=== PATIENT | female | born 1955 | race Caucasian/White ===

== ENCOUNTER 2022-07-31 12:21 | Outpatient (REF) | payer SELFPAY | END 2022-07-31 12:22 | disposition home or self-care (01) | LOC: HO.HAP 12:21 | PROVIDERS: Visit Provider Student in an Organized Health Care Education/Training Program | DX: Z13.89 Encounter for screening for other disorder (principal) ==

== ENCOUNTER 2022-11-24 12:25 | Outpatient (REF) | payer SELFPAY | END 2022-11-24 12:26 | disposition home or self-care (01) | LOC: HO.HAP 12:25 | PROVIDERS: Visit Provider Student in an Organized Health Care Education/Training Program | DX: Z13.89 Encounter for screening for other disorder (principal) ==

== ENCOUNTER 2023-02-09 12:45 | Outpatient (REF) | payer SELFPAY ==
--- NOTE | 2023-02-09 14:36 | MHC.AU.HA3 ---
Hearing Instrument Follow-Up- Binaural Date of Visit: 02/09/23 Right Ear: Make, Model, Color, Serial Number: ReSound Erasmo Q7 HP BTE ([id number] - DWHT) Color: 74 [id number] NOW PROGRAMMED FOR THE LEFT EAR BACKUP Systems Auditor Repair Warranty: 07/13/2025 Systems Auditor Loss and Damage Warranty: 07/13/2025 [facility] Service Plan: 07/17/2023 Battery Size: 13 Earmold/Dome/CShell/SlimTip:Microsonic M45 canal lock Dispensed By: [facility] Date of Fittin07/17/2022 Left Ear: Make, Model, Color, Serial Number: ReSound Erasmo Q7 HP BTE ([id number] - DWHT) Color: 74 (DK BR) [id number] Systems Auditor Repair Warranty: 07/13/2025 Systems Auditor Loss and Damage Warranty: 07/13/2025 [facility] Service Plan: 07/17/2023 Battery Size: 13 Earmold/Dome/CShell/SlimTip: Microsonic M45 canal lock Dispensed By: [facility] Date of Fittin07/17/2022 Follow-Up Summary: Fit new earmold. Comfortable and no feedback in office. Advised of 90-day remake warranty. Sakshi will call if issues with fit or comfort arise. Sakshi has right CI now. She is unsure if her hearing aid and CI were programmed together at [facility] - she will call to inquire. Advised having all programming/adjustments and testing at [facility] for both CI and hearing aid together as [facility] does not work with CIs. Sakshi reported, however, that she would still prefer to come here for testing of her left ear and hearing aid related issues. She is currently scheduled for an updated hearing evaluation on 07/09/2023. Recommendations: Hearing instrument maintenance in 6 months, or sooner if needed. Please contact our clinic with any questions or concerns. Diagnosis Code(s): Primary Diagnosis: H90.3 Bilateral Sensorineural Hearing Loss Signature: Provider: Ruddy Valiente, [facility]
== END 2023-02-09 12:46 | disposition home or self-care (01) ==
LOC: HO.HAP 12:45
PROVIDERS: Visit Provider Student in an Organized Health Care Education/Training Program
DX: H90.3 Sensorineural hearing loss, bilateral (principal)
CPT/HCPCS: V5264

== ENCOUNTER 2023-07-09 13:00 | Outpatient (REF) | payer SELFPAY ==
--- NOTE | 2023-07-09 15:28 | MHC.AU.HA3 ---
Hearing Instrument Follow-Up- Binaural Date of Visit: 07/09/23 BACK UP Left Ear: Make, Model, Color, Serial Number: Zohaib Plummero Q7 HP BTE ([id number] - DWHT) Color: 74 [id number] NOW PROGRAMMED FOR THE LEFT EAR BACKUP Durability Technician Repair Warranty: 07/13/2025 Durability Technician Loss and Damage Warranty: 07/13/2025 [facility] Service Plan: 07/17/2023 Battery Size: 13 Erp Consultant/Slim Tube: NA Earmold/Dome/CShell/SlimTip:Microsonic M45 canal lock Type of Wax Guard: Dispensed By: [facility] Date of Fittin07/17/2022 Left Ear: Make, Model, Color, Serial Number: Zohaib Plummero Q7 HP BTE (EQ788 - DWHT) Color: 74 (DK BR) [id number] Durability Technician Repair Warranty: 07/13/2025 Durability Technician Loss and Damage Warranty: 07/13/2025 [facility] Service Plan: 07/17/2023 Battery Size: 13 Erp Consultant/Slim Tube: NA Earmold/Dome/CShell/SlimTip: Microsonic M45 canal lock Type of Wax Guard: Dispensed By: [facility] Date of Fittin07/17/2022 Follow-Up Summary: Here for tube change. Reports that neither hearing aid (uses one as a back up, switches left mold and tube between aids) is working recently. Found tube to be very hard, listening check positive for both aids after cleaning and with fresh tube. Pt also notes recent ear infection As with TM rupture with discharge, went to urgent care, notes she is currently taking antibiotics and trying to schedule an appt. with her ENT. Otoscopy reveals dry blood and debris in canal, could not fully visualize TM. Advised not to wear the hearing aid on the left ear until the infection is fully cleared up. Recommendations: Recommendations: Hearing instrument maintenance in 6 months, or sooner if needed. Diagnosis Code(s): Primary Diagnosis: H90.3 Bilateral Sensorineural Hearing Loss Signature: Provider: Ruddy Schmidt, [facility]
== END 2023-07-09 13:01 | disposition home or self-care (01) ==
LOC: HO.HAP 13:00
PROVIDERS: Visit Provider Student in an Organized Health Care Education/Training Program
DX: Z13.89 Encounter for screening for other disorder (principal)

== ENCOUNTER 2023-12-08 13:52 | Outpatient (REF) | payer SELFPAY | END 2023-12-08 13:53 | disposition home or self-care (01) | LOC: HO.HAP 13:52 | PROVIDERS: Visit Provider Student in an Organized Health Care Education/Training Program | DX: Z46.1 Encounter for fitting and adjustment of hearing aid (principal); H90.3 Sensorineural hearing loss, bilateral | CPT/HCPCS: 92593 ==

== ENCOUNTER 2024-03-31 13:14 | Outpatient (REF) | payer SELFPAY | END 2024-03-31 13:15 | disposition home or self-care (01) | LOC: HO.HAP 13:14 | PROVIDERS: Visit Provider Student in an Organized Health Care Education/Training Program | DX: Z13.89 Encounter for screening for other disorder (principal) ==

== ENCOUNTER 2024-04-28 08:13 | Outpatient (REF) | payer SELFPAY ==
--- NOTE | 2024-04-28 12:15 | MHC.AU.HA3 ---
Hearing Instrument Follow-Up- Binaural Date of Visit: 04/28/24 Right Ear: Make, Model, Color, Serial Number: ReSound Erasmo Q7 HP BTE (EQ788 - DWHT) Color: 74 [id number] NOW PROGRAMMED FOR THE LEFT EAR BACKUP; HAS CI Cuffer Repair Warranty: 07/13/2025 Cuffer Loss and Damage Warranty: 07/13/2025 [facility] Service Plan: 07/17/2023 Battery Size: 13 Specialties Operator/Slim Tube: NA Earmold/Dome/CShell/SlimTip:Microsonic M45 canal lock Type of Wax Guard: Dispensed By: [facility] Date of Fittin07/17/2022 Left Ear: Make, Model, Color, Serial Number: ReSound Erasmo Q7 HP BTE (EQ788 - DWHT) Color: 74 (DK BR) [id number] Cuffer Repair Warranty: 07/13/2025 Cuffer Loss and Damage Warranty: 07/13/2025 [facility] Service Plan: 07/17/2023 Battery Size: 13 Specialties Operator/Slim Tube: NA Earmold/Dome/CShell/SlimTip: Microsonic M45 canal lock Type of Wax Guard: Dispensed By: [facility] Date of Fittin07/17/2022 Follow-Up Summary: Dispensed new left EM. Cleaned and checked aid, listening check positive. Good subjective comfort and benefit reported. Disposed of old EM at Sakshi's request, she notes is has been uncomfortable and does not wish to hold on to is as a back up. Recommendations: Recommendations: Hearing instrument maintenance in 6 months, or sooner if needed. Diagnosis Code(s): Primary Diagnosis: H90.3 Bilateral Sensorineural Hearing Loss Signature: Provider: Ruddy Magana, [facility]
== END 2024-04-28 08:14 | disposition home or self-care (01) ==
LOC: HO.HAP 08:13
PROVIDERS: Visit Provider Student in an Organized Health Care Education/Training Program
DX: Z46.1 Encounter for fitting and adjustment of hearing aid (principal); H90.3 Sensorineural hearing loss, bilateral
CPT/HCPCS: V5264

== ENCOUNTER 2024-09-18 15:36 | Outpatient (AMB) | payer MEDICARE, SELFPAY ==
[2024-09-18 15:39] VITALS: BP 106/72; PULSE 73; O2SAT 96; BMI 27.1
--- NOTE | 2024-09-18 15:39 | A.OFFPC_ITS ---
Vital Signs 09/18/24 15:39 Height 5 ft 4 in Weight 158 lb BMI 27.1 BP 106/72 Blood Pressure Location Rt brachial Position Sitting Pulse 73 Pulse Source Pulse Oximeter Pulse Oximetry (%) 96 Oxygen Delivery Method Room Air Intake Visit Reasons: Est care Allergies codeine Allergy (Intermediate, Verified 09/18/24 15:45) Unknown Tobacco use date assessed: 09/18/24 Fall risk assessment: No Falls in past year Last assessed Fall Risk: 09/18/24 Dental Screening Dental Screen Date: 09/18/24 Did you have a dental visit in the last 12 months?: Yes Did you have a dental problem in the last 6 months where you did not have access to dental care?: No Was dental information given to patient?: Patient has dentist HPI HPI Comments History of Present Illness Details 69 year old female with SNH presents to [facility]. Transfer from [facility]. Requests referral to counseling for self care and to discuss events in her life that have been stressful over the years. Denies depression and JACQUELINE symptoms. PHQ9 negative. SNHL-symptoms since 47 years old. S/p right cochlear implant. She uses a hearing aid on the left. She sees Dr. Greene. Endorses headaches x 1-2 years. Occur monthly, but she had 2 the past month that were more severe. Generalized aching headache. Rated as severe when present like she was hit in the head. Associated with light sensitivity. Previously took ibuprofen 400 mg 1x to treat. Required 2-3 doses the last 2 headaches. No jaw clenching/teeth grinding, neck pain. Denies neuroimaging for evaluation. Last colonoscopy 2006. Denies colonoscopy. Cologuard ordered. ROS: Constitutional: No unexplained weight loss, fever, chills, fatigue or night sweats. Eyes: No vision changes, blurry vision, double vision, eye pain, eye redness, eye discharge. ENT: No hearing loss, sneezing, congestion, runny nose or sore throat. Respiratory: No shortness of breath, cough or sputum production. Cardiovascular: No chest pain, chest pressure or chest discomfort. No palpitations or pedal edema. Gastrointestinal: No anorexia, nausea, vomiting or diarrhea. No abdominal pain or blood in stool. Neurologic: No tremors, seizures, dizziness, syncope, unilateral weakness, ataxia, numbness or tingling in the extremities. Musculoskeletal: No neck pain Psychiatric: No depression or anxiety. No SI/HI. Physical exam: Constitutional: Alert, in no distress. Head: Normocephalic. Eyes: Pupils are equal, round and reactive to light. Extraocular muscles intact. Neck: Supple, Full range of motion. No lymphadenopathy. No palpable thyroid masses. Respiratory: Clear to auscultation. Cardiovascular: S1 S2 regular. No murmurs. Gastrointestinal: Abdomen soft, non-tender, non-distended. Normal bowel sounds. No palpable masses. Neurologic:?Alert and oriented x 3, no focal deficits observed, CN 2-12 intact, boavpx-fknv-[id number] normal, sensation equal and symmetric, strength UE and LE 5/5 bilaterally, reflexes equal and symmetric.? Normal gait.? Patient able to heel walk, toe walk and walk heel-to-toe across the floor.? No pronator drift.? Negative Romberg. Cervical spine: No gross deformities. Normal range of motion. Nontender. Extremities: Warm and well perfused. No clubbing, cyanosis or edema. [facility] Medical History (Updated 09/18/24 @ 20:19 by SAM Browning) Stress Worsening headaches Cochlear implant in place Surgical History (Updated 09/18/24 @ 15:49 by Jeannette Oneal CMA) H/O hernia repair H/O: hysterectomy Family History (Updated 09/18/24 @ 15:50 by Jeannette Oneal CMA) Mother Glaucoma Mental health disorder Social History (Updated 09/18/24 @ 15:48 by Jeannette Oneal CMA) Household Members: Spouse and Children Housing: House Alcohol intake: never Patient Tobacco Use Status: Never used Tobacco e-Cigarette/Vaping Use: Never Used service: No Current occupational status: retired Cognitive needs: No Hearing needs: Yes Vision needs: Yes Questionnaire PHQ-9 Over the last 2 weeks, how often have you been bothered by any of the following problems? 1. Little interest or pleasure in doing things: not at all 2. Feeling down, depressed, or hopeless: not at all 3. Trouble falling or staying asleep, or sleeping too much: not at all 4. Feeling tired or having little energy: not at all 5. Poor appetite or overeating: not at all 6. Feeling bad about yourself - or that you are a failure or have let yourself or your family down: not at all 7. Trouble concentrating on things, such as reading the newspaper or watching television: not at all 8. Moving or speaking so slowly that other people could have noticed. Or the opposite - being so fidgety or restless that you have been moving around a lot more than usual: not at all 9. Thoughts that you would be better off or of hurting yourself in some way: not at all Total score: 0 Depression Screening Interpretation: Negative Depression Screening Done: Yes 01675 - PHQ-9 Billing: Yes Source: Developed by Drs. Lisandro Solorzano, Zuleyka Phelps, Emeterio Montanez and colleagues, with an educational jacoby from [employer]. Thrive Questionnaire Date Thrive assessed: 09/18/24 I am a: Patient What is your living situation today?: I have a steady place to live Within the past 12 months, did the food you bought not last and you didn't have the money to get more?: Never true Within the past 12 months, did you worry whether your food would run out before you got money to buy more?: Never true Do you have trouble paying for medicines?: No Do you have trouble getting transportation to medical appointments?: No Do you have trouble paying your heating and electricity bill?: No Do you have trouble taking care of your child, family member or friend?: No Do you have trouble with day-to-day activities such as bathing, preparing meals, shopping, managing finances, etc.?: No Are you currently unemployed and looking for a job?: No Are you interested in more education?: Yes Please select the resources that you would like help with: Food and None Currently or been in a relationship where the following occur: I choose not to answer THRIVE Score: 0 AUDIT C Alcohol Use Questionnaire (AUDIT-C) 1. How often do you have a drink containing alcohol?: Never 3. How often do you have six or more drinks on one occasion?: Never Total Score: 0 JACQUELINE-7 AMB Questionnaire JACQUELINE-7 Date JACQUELINE - 7 assessed: 09/18/24 Feeling nervous, anxious, or on edge: 0 = Not at all Not being able to stop or control worryin = Not at all Worrying too much about different things: 0 = Not at all Trouble relaxin = Not at all Being so restless that it is hard to sit still: 0 = Not at all Becoming easily annoyed or irritable: 0 = Not at all Feeling afraid as if something awful might happen: 0 = Not at all Total JACQUELINE-7 score (0-4 normal; 5-9 mild; 10-14 moderate; 15-21 severe): 0 Source: Developed by Drs. Lisandro Solorzano, Zuleyka Phelps, Emeterio Montanez and colleagues, with an educational jacoby from [employer]. JACQUELINE-7 Assessment Billing JACQUELINE-7 Assessment Tool: JACQUELINE-7 Assessment 85691 Physical exam (Primary Care) Vital Signs: Last Vital Signs Pulse 73 09/18/24 15:39 BP 106/72 09/18/24 15:39 Pulse Ox 96 09/18/24 15:39 Oxygen Delivery Method Room Air 09/18/24 15:39 BMI result Body Mass Index 27.1 Tobacco/Smoking Status: Tobacco use Status Tobacco use date assessed 09/18/24 09/18/24 15:52 Patient Tobacco Use Status Never used Tobacco 09/18/24 15:52 e-Cigarette/Vaping Use Never Used 09/18/24 15:52 PHQ-9: PHQ-9 Score PHQ-9: Total score 0 09/18/24 16:28 Depression Screening Interpretation: Negative Thrive Assessment: Date of Thrive Assessment Date Thrive assessed 09/18/24 09/18/24 15:52 Currently or been in a relationship where the following occur: I choose not to answer Coding Level of Care Code New Pt Level 4 (94024) Complex EM visit Add On G2211 Diagnoses Worsening headaches R51.9 Stress F43.9 Additional Codes JACQUELINE-7 Assessment Billing - JACQUELINE-7 Assessment Tool: JACQUELINE-7 Assessment 85620 ([id number]) PHQ-9 - 55452 - PHQ-9 Billing: Yes ([id number]) Assessment & Plan Assessment & Plan (1) Worsening headaches: Code(s): R51.9 - Headache, unspecified Category: Medical (2) Stress: Code(s): F43.9 - Reaction to severe stress, unspecified Category: Medical Plan Patient reports headaches x 1 year not previously reported. Differential includes Migraines, tension headache, mixed headache. Brain tumor less likely, but the patient needs an MRI to rule out intracranial structural pathology given recent worsening. Office will call Dr. Greene's office to make sure MRI is okay with cochlear implant. Ibuprofen 600 mg at the start of headache with food and every 6 hours as needed. Stay hydrated, importance of adequate nutrition and sleep reviewed. Check labs. Referred to psych for counseling. Follow up in 8 weeks. Orders: Orders Vitamin D 25-OH (D2 and D3) Today F32.A - Depression, unspecified, F41.9 - Anxiety disorder, unspecified, M85.80 - Other specified disorders of bone density and structure, unspecified site, R51.9 - Headache, unspecified Lipid Panel Today E78.5 - Hyperlipidemia, unspecified, F32.A - Depression, unspecified, F41.9 - Anxiety disorder, unspecified, R51.9 - Headache, unspecified IRON PROFILE Today F32.A - Depression, unspecified, F41.9 - Anxiety disorder, unspecified, R51.9 - Headache, unspecified Lyme IgG/IgM w/reflex to WB Today F32.A - Depression, unspecified, F41.9 - Anxiety disorder, unspecified, R51.9 - Headache, unspecified Vitamin B12 Today F32.A - Depression, unspecified, F41.9 - Anxiety disorder, unspecified, R51.9 - Headache, unspecified, Z91.89 - Other specified personal risk factors, not elsewhere classified TSH reflex Free T4 Today F32.A - Depression, unspecified, F41.9 - Anxiety disorder, unspecified, R51.9 - Headache, unspecified Complete Blood Count Auto Diff Today F32.A - Depression, unspecified, F41.9 - Anxiety disorder, unspecified, R51.9 - Headache, unspecified Comprehensive Met. Panel Today F32.A - Depression, unspecified, F41.9 - Anxiety disorder, unspecified, R51.9 - Headache, unspecified Medications: New ibuprofen 600 mg PO Q6H PRN 60 tabs 0RF pain
== END 2024-09-18 16:42 | disposition home or self-care (01) ==
PROVIDERS: PCP Physician Assistant Medical; Visit Provider Physician Assistant Medical
DX: R51.9 Headache, unspecified (principal); F43.9 Reaction to severe stress, unspecified

== ENCOUNTER → 2024-09-18 15:36 | Outpatient (BNVA) | payer MEDICARE, SELFPAY | PROVIDERS: PCP Physician Assistant Medical; Visit Provider Physician Assistant Medical | DX: R51.9 Headache, unspecified (principal); F43.9 Reaction to severe stress, unspecified | CPT/HCPCS: 96127; 99202 ==

== ENCOUNTER 2024-09-20 08:39 | Outpatient (REF) | payer MEDICARE, SELFPAY ==
[2024-09-20 11:49] LABS: MANUAL DIFF FLAG NO
[2024-09-20 11:53] LABS: Basophils Percent Auto 0.5 % (0-2); Eosinophils Absolute Auto 0.1 X10*3/uL (0.0-0.4); Eosinophils Percent Auto 2.7 % (0-4); Hematocrit 41.6 % (37.0-47.0); Hemoglobin 12.9 g/dl (12.0-16.0); Imm Gran Abs Auto 0.01 X10*3/uL (0.00-0.03); Imm Gran Pct Auto 0.2 % (0.0-0.4); Lymphocytes Absolute Auto 0.9 X10*3/uL (1.2-4.9); Lymphocytes Percent Auto 20.9 % (20-40); Mean Corpuscular Hemoglobin 27.6 pg (27.0-33.0); Mean Corpuscular Volume 88.9 fL (80.0-98.0); Mean Platelet Volume 9.5 fL (9.4-12.3); Monocytes Absolute Auto 0.4 X10*3/uL (0.1-1.2); Monocytes Percent Auto 8.8 % (2-11); Neutrophils Percent Auto 66.9 % (45-73); Platelet Count 280 X10*3/uL (160-400); Red Blood Count 4.68 X10*6/uL (4.20-5.50); Red Cell Distribution Width 16.9 % (11.0-16.0); White Blood Count 4.4 X10*3/uL (4.8-10.8)
[2024-09-20 12:22] LABS: Alanine Aminotransferase 20 U/L (0-31); Albumin Level 4.1 g/dL (3.5-5.0); Alkaline Phosphatase 250 U/L (39-117); Anion Gap 10 (12-20); Aspartate Amino Transferase 26 U/L (5-31); Bilirubin Total 1.1 mg/dL (0.0-1.0); Blood Urea Nitrogen 10 mg/dL (9-16); Calcium 9.5 mg/dL (8.4-10.2); Carbon Dioxide 28 mmol/L (22-29); Chloride 106 mmol/L (96-108); Cholesterol 209 mg/dL (<200); Estimated Glomerular Filt Rate > 60; Glucose Random 85 mg/dL (60-115); HDL Cholesterol 87 mg/dL (>40); Iron 51 mcg/dL (30-160); LDL Cholesterol Calculated 113 mg/dL (<100); Percent Iron Saturation 15 % (15-50); Potassium 4.4 mmol/L (3.3-5.1); Sodium 140 mmol/L (135-145); Total Iron Binding Capacity 341 mcg/dL (228-428); Total Protein 6.8 g/dL (6.5-8.0); Triglycerides 46 mg/dL (<150); Unsaturated Iron Binding 290 ug/dL
[2024-09-20 12:27] LABS: TSH reflex Free T4 1.99 uIU/mL (0.32-4.0)
[2024-09-20 12:52] LABS: Vitamin B12 541 pg/mL (200-900)
[2024-09-21 09:07] LABS: Lyme Abs Screen <0.90 index
[2024-09-24 17:38] LABS: Vitamin D 25-OH, D2 <4 ng/mL; Vitamin D 25-OH, D3 44 ng/mL; Vitamin D 25-OH, Total 44 ng/mL (30-100)
== END 2024-09-20 08:40 | disposition home or self-care (01) ==
LOC: HO.WFDLDS 08:39
PROVIDERS: Visit Provider Physician Assistant Medical
DX: F41.9 Anxiety disorder, unspecified (principal); E78.5 Hyperlipidemia, unspecified; F32.A Depression, unspecified; R51.9 Headache, unspecified; Z91.89 Other specified personal risk factors, not elsewhere classified; M85.80 Other specified disorders of bone density and structure, unspecified site
CPT/HCPCS: 36415; 80053; 80061; 82306; 82607; 83540; 84443; 85025; 86617; 86618

== ENCOUNTER 2024-10-04 15:10 | Outpatient (REF) | payer SELFPAY ==
--- NOTE | 2024-10-04 16:07 | MHC.AU.HA3 ---
Hearing Instrument Follow-Up- Binaural Date of Visit: 10/04/24 Right Ear: CI this aid is now used as a backup for the left Make, Model, Color, Serial Number: ReSound Erasmo Q7 HP BTE ([id number] - DWHT) Color: 74 [id number] NOW PROGRAMMED FOR THE LEFT EAR BACKUP; HAS CI Cable Supervisor Repair Warranty: 07/13/2025 Cable Supervisor Loss and Damage Warranty: 07/13/2025 [facility] Service Plan: 07/17/2023 Battery Size: 13 Gravity Meter Observer/Slim Tube: NA Earmold/Dome/CShell/SlimTip:Microsonic M45 canal lock Type of Wax Guard: Dispensed By: [facility] Date of Fittin07/17/2022 Left Ear: Make, Model, Color, Serial Number: Zohaib Erasmo Q7 HP BTE (EQ788 - DWHT) Color: 74 (DK BR) [id number] Cable Supervisor Repair Warranty: 07/13/2025 Cable Supervisor Loss and Damage Warranty: 07/13/2025 [facility] Service Plan: 07/17/2023 Battery Size: 13 Gravity Meter Observer/Slim Tube: NA Earmold/Dome/CShell/SlimTip: Microsonic M45 canal lock Type of Wax Guard: Dispensed By: [facility] Date of Fittin07/17/2022 Follow-Up Summary: Here for tubing change. Reports that her back up aid recently did not work for her when she tried to use it, would like that checked. Also notes recent popping in right ear wondering what could be causing that. Found visually occluding cerumen Ad, discussed and recommended cerumen removal at ENT due to reported history of TM perf. Cleaned both aids, cleaned earmold, replaced tubing. Listening check positive for both hearing aids. Suspect wax could have caused her to find the back up aid not working. Recommendations: Recommendations: Hearing instrument maintenance in 6 months, or sooner if needed. Diagnosis Code(s): Primary Diagnosis: H90.3 Bilateral Sensorineural Hearing Loss Signature: Provider: Ruddy Magana, CCC-A
== END 2024-10-04 15:11 | disposition home or self-care (01) ==
LOC: HO.HAP 15:10
PROVIDERS: Visit Provider Physician Assistant Medical
DX: Z46.1 Encounter for fitting and adjustment of hearing aid (principal); H90.3 Sensorineural hearing loss, bilateral
CPT/HCPCS: 92593

== ENCOUNTER 2024-11-08 13:17 | Outpatient (REF) | payer MEDICARE, SELFPAY ==
[2024-11-08 14:26] LABS: Baso%MD 0.6 %; Eos%MD 1.4 %; Hematocrit 38.7 % (37.0-47.0); Hemoglobin 12.2 g/dl (12.0-16.0); IG%MD 0.2 %; Lymph%MD 19.7 %; Mean Corpuscular HGB Conc 31.5 g/dl (31.0-35.0); Mean Corpuscular Hemoglobin 29.1 pg (27.0-33.0); Mean Corpuscular Volume 92.4 fL (80.0-98.0); Mean Platelet Volume 9.5 fL (9.4-12.3); Mono%MD 8.2 %; Neut%MD 69.9 %; Platelet Count 265 X10*3/uL (160-400); Red Blood Count 4.19 X10*6/uL (4.20-5.50); Red Cell Distribution Width 14.4 % (11.0-16.0); White Blood Count 4.9 X10*3/uL (4.8-10.8)
[2024-11-08 14:49] LABS: Alanine Aminotransferase 19 U/L (0-31); Alkaline Phosphatase 278 U/L (39-117); Aspartate Amino Transferase 27 U/L (5-31); Bilirubin Direct 0.2 mg/dL (0.0-0.5); Bilirubin Total 0.8 mg/dL (0.0-1.0); Total Protein 6.2 g/dL (6.5-8.0)
[2024-11-08 14:52] LABS: Gamma Glutamyl Transpeptidase 11 U/L (7-33)
[2024-11-08 16:27] LABS: Band Neutrophils Percent 3 % (3-5); Basophils Abs Manual 0.1 X10*3/uL (0.0-0.2); Basophils Percent Manual 2 % (0-2); Lymphocytes Absolute Manual 0.9 X10*3/uL (1.2-4.9); Lymphocytes Percent Manual 19 % (20-40); Monocytes Absolute Manual 0.1 X10*3/uL (0.1-1.2); Monocytes Percent Manual 3 % (2-11); Neutrophils Absolute Manual 3.7 X10*3/uL (2.0-8.3); Neutrophils Percent Manual 73 % (45-73)
[2024-11-08 16:28] LABS: RBC Morphology NORMAL
[2024-11-08 16:29] LABS: Platelet Estimate NORMAL (NORMAL); Platelet Morphology Comment NORMAL
[2024-11-13 20:38] LABS: Alk.Phos Iso. Macrohepatic 0 % (<=0); Alk.Phos Isoenzymes Bone 17 % (28-66); Alk.Phos Isoenzymes Intest 57 % (1-24); Alk.Phos Isoenzymes Liver 26 % (25-69); Alk.Phos Isoenzymes Placental 0 % (<=0); Alk.Phos Isoenzymes Total 221 U/L (37-153)
== END 2024-11-08 13:18 | disposition home or self-care (01) ==
LOC: HO.WFDLDS 13:17
PROVIDERS: Visit Provider Physician Assistant Medical
DX: R74.8 Abnormal levels of other serum enzymes (principal); D72.819 Decreased white blood cell count, unspecified
CPT/HCPCS: 36415; 80076; 82977; 84080; 85007; 85027

== ENCOUNTER 2024-11-09 07:53 | Outpatient (REF) | payer MEDICARE, SELFPAY ==
--- NOTE | ~2024-11-09 | MM_ITS ---
EXAMINATION: DXA BONE DENSITY AXIAL HISTORY: N95.1 - Menopausal and female climacteric states TECHNIQUE: [employer] Dual energy absorptiometry (DEXA) of the lumbar spine, total left hip, and femoral neck was performed. COMPARISON: There are no prior studies for comparison. FINDINGS: The bone mineral density of the lumbar spine is 0.971 with a T-score of -1.7, and a Z-score of -0.3. This is indicative of osteopenia. The bone mineral density of the left total hip is 0.788 with a T-score of -1.7, and a Z-score of -0.5. This is indicative of osteopenia. The bone mineral density of the left femoral neck is 0.765 with a T-score of -2.0, and a Z-score of -0.5. This is indicative of osteopenia. FRACTURE RISK: The FRAX index suggests a risk of major osteoporotic fracture of 11.3%, and of hip fracture 1.9%. MM/XR DEXA axial skeleton IMPRESSION: Based on bone mineral density, and according to World Health Organization (WHO) criteria, the diagnosis is consistent with osteopenia. All bone density values are in grams per centimeter squared (g/cm2). Statistically, 68% of repeat scans fall within 1 SD (+/- 0.010 g/cm2 for AP spine L1-L4) and 1 SD (+/- 0.012 g/cm2 for femur total) FRAX is a trademark of the [employer] [place] for Metabolic Bone Disease, a World Health Organization (WHO) Collaborating Center. Electronically signed by: Lisandro Reis MD 11/09/2024 08:57 AM EDT
--- OUTSIDE RECORDS SUMMARY | 2024-11-09 07:59 | XMS_ITS | Encounter Summary ---
Author Organization [facility] Address [address] [place] [address] Care Team Providers Care Instructional Services Specialist Name Role Phone Edvin Weir MD Primary Care Provider Mohamud Tomas Pcp Primary Care Provider Reene Colon MD Primary Care Provider [phone] Dago Wilson DO Primary Care Provider Arlene Alfaro MD Primary Care Provider Un available Encounter Details Date Type Department Care Team Description 04/18/2020 Release of Information Medical Records [address] [place] [address] Abstract, Provider Social History Tobacco Use Types Packs/Day Years Used Date Smoking Tobacco: Never Assessed Alcohol Habits Answer Date Recorded How often do you have a drin k containing alcohol? Never 05/31/2023 How many drinks containing a lcohol do you have on a typical day when you are drinking? Patient does not drink 05/31/2023 How often do you have six or more drinks on one occasion? Never 05/31/2023 Social Isolation Answer Date Recorded In a typical week, how many times do you talk on the phone with family, friends, or neighbors? More than three times a week 05/31/2023 How often do you get togethe r with friends or relatives? More than three times a week 05/31/2023 How often do you attend chur ch or hindu services? Never 05/31/2023 Do you belong to any clubs o r organizations such as adventist groups, unions, fraternal or athletic groups, or school groups? No 05/31/2023 How often do you attend meet ings of the clubs or organizations you belong to? Never 05/31/2023 Are you now , , , , never or living with a partner? 05/31/2023 Physical Activity Answer Date Recorded On average, how many days pe r week do you engage in moderate to strenuous exercise (like walking fast, running, jogging, dancing, swimming, biking, or other activities that cause a light or heavy sweat)? 5 days 05/31/2023 On average, how many minutes do you engage in exercise at this level? 20 min 05/31/2023 Stress Answer Date Recorded Do you feel stress - tense, restless, nervous, or anxious, or unable to sleep at night because your mind is troubled all the time - these days? Not at all 05/31/2023 Financial Resource Strain Answer Date R ecorded How hard is it for you to pa y for the very basics like food, housing, medical care, and heating? Not hard at all 05/31/2023 Intimate Partner Violence Answer Date R ecorded Within the last year, have y ou been afraid of your partner or ex-partner? No 05/31/2023 Within the last year, have y ou been humiliated or emotionally abused in other ways by your partner or ex-partner? No Within the last year, have y ou been kicked, hit, slapped, or otherwise physically hurt by your partner or ex-partner? No 05/31/2023 Within the last year, have y ou been raped or forced to have any kind of sexual activity by your partner or ex-partner? No 05/31/2023 Food Insecurity Answer Date Recorded Within the past 12 months, y ou worried that your food would run out before you got money to buy more. Never true 05/31/2023 Within the past 12 months, t he food you bought just didn't last and you didn't have money to get more. Never true 05/31/2023 Transportation Needs Answer Date Record ed In the past 12 months, has l ack of transportation kept you from medical appointments or from getting medications? No 05/13 In the past 12 months, has l ack of transportation kept you from meetings, work, or getting things needed for daily living? No 05/31/2023 Housing Stability Answer Date Recorded In the last 12 months, was t here a time when you were not able to pay the mortgage or rent on time? No 05/31/2023 In the last 12 months, how many places have you lived? 1 05/31/2023 In the last 12 months, was t here a time when you did not have a steady place to sleep or slept in a fdc (including now)? No 05/31/2023 Sex Assigned at Date Recorded Not on file documented as of this encounter Plan of Treatment Not on file documented as of this encounter Visit Diagnoses Not on filedocumented in this encounter Care Teams Instructional Services Specialist Relationship Specialty Start Date End Date Edvin Weir MD PCP - General Internal Medicine 04/15/20 07/31/20 [facility], Pcp PCP - General Internal Medicine 08/01/20 08/15/20 Renee Araya MD PCP - General Internal Medicine 08/16/20 07/07/21 Dago Wilson DO PCP - General Internal Medicine 07/08/21 12/23/23 Arlene Gomes MD PCP - General Internal Medicine 12/24/23 documented as of this encounter
--- OUTSIDE RECORDS SUMMARY | 2024-11-09 07:59 | XMS_ITS | Encounter Summary ---
Author Organization [facility] Address [address] [place] [address] Care Team Providers Care Bicycle Inspector Name Role Phone Dago Wilson DO Primary Care Provider Arlene Alfaro MD Primary Care Provider Un available Encounter Details Date Type Department Care Team Description 09/18/2021 Telephone Adult Medicine - [address] [address] Dago Wilson, Social History Tobacco Use Types Packs/Day Years Used Date Smoking Tobacco: Never Smokeless Tobacco: Never Alcohol Use Standard Drinks/Week Comments Not Currently 0 (1 standard drink = 0.6 oz pur e alcohol) Alcohol Habits Answer Date Recorded How often [...] often do you attend chur ch or anglican services? Never 05/31/2023 Do you belong to any clubs o r organizations such as sabianism groups, unions, fraternal or athletic groups, or [...] place to sleep or slept in a alf (including now)? No 05/31/2023 Sex Assigned at Date Recorded Not on file COVID-19 Exposure Response Date Recorded In the last month, have you been in contact with someone who was confirmed or suspected to have Coronavirus / COVID-19? No / Unsure 08/19/2021 10:43 AM EST documented as of this encounter Plan of Treatment Not on file documented as of this encounter Visit Diagnoses Not on filedocumented in this encounter Care Teams Bicycle Inspector Relationship Specialty Start Date End Date Dago Wilson DO PCP - General Internal Medicine 07/08/21 12/23/23 Arlene Gomes MD PCP - General Internal Medicine 12/24/23 documented as of this encounter
--- OUTSIDE RECORDS SUMMARY | 2024-11-09 07:59 | XMS_ITS | Encounter Summary ---
Author Organization [facility] Address [address] [place] [address] Care Team Providers Care Political Research Scientist Name Role Phone Edvin Weir MD Primary Care Provider Mohamud Tomas Pcp Primary Care Provider Renee Colon MD Primary Care Provider [phone] Dago Wilson DO Primary Care Provider Arlene Alfaro MD Primary Care Provider Un available Reason for Visit * Reason Onset Date Comments Release Of Information 04/15/2020 Encounter Details Date Type Department Care Team Description 04/15/2020 Telephone Adult [address] [address] Edvin Weir MD Release Of Information Social History Tobacco Use Types Packs/Day Years [...] any clubs o r organizations such as scientology groups, unions, fraternal or athletic groups, or [...] place to sleep or slept in a custodial (including now)? No 05/31/2023 Sex Assigned at Date Recorded Not on file documented as of this encounter Miscellaneous Notes * Telephone Encounter - Olga Braxton - 04/15/2020 3:13 PM EDT NAN FILLED OUT 04/15/20 [facility] FAXED AND PUT IN [place] F[place]DER documented in this encounter Plan of Treatment Not on file documented as of this encounter Visit Diagnoses Not on filedocumented in this encounter Care Teams Political Research Scientist Relationship Specialty Start Date End Date Edvin Weir MD PCP - General Internal Medicine 04/15/20 07/31/20 [facility], Pcp PCP - General Internal Medicine 08/01/20 08/15/20 Renee Araya MD PCP - General Internal Medicine 08/16/20 07/07/21 Dago Wilson DO PCP - General Internal Medicine 07/08/21 12/23/23 Arlene Gomes MD PCP - General Internal Medicine 12/24/23 documented as of this encounter
--- OUTSIDE RECORDS SUMMARY | 2024-11-09 07:59 | XMS_ITS | Encounter Summary ---
Author Organization [facility] Address [address] [place] [address] Care Team Providers Care Veterinary Practice Manager Name Role Phone Dago Wilson DO Primary Care Provider Arlene Alfaro MD Primary Care Provider Un available Encounter Details Date Type Department Care Team Description 07/14/2022 Clay Digger Report Medical Records [address] [place] [address] Gary Greene Social History Tobacco Use Types Packs/Day Years [...] often do you attend chur ch or hoahaoism services? Never 05/31/2023 Do you belong to any clubs o r organizations such as episcopalian groups, unions, fraternal or athletic groups, or [...] place to sleep or slept in a snf (including now)? No 05/31/2023 Sex Assigned at Date Recorded Not on file documented as of this encounter Plan of Treatment Not on file documented as of this encounter Visit Diagnoses Not on filedocumented in this encounter Care Teams Veterinary Practice Manager Relationship Specialty Start Date End Date Dago Wilson DO PCP - General Internal Medicine 07/08/21 12/23/23 Arlene Gomes MD PCP - General Internal Medicine 12/24/23 documented as of this encounter
--- OUTSIDE RECORDS SUMMARY | 2024-11-09 07:59 | XMS_ITS | Encounter Summary ---
Author Organization [facility] Address [address] [place] [address] Care Team Providers Care Hook And Eye Machine Operator Name Role Phone Dago Wilson DO Primary Care Provider Arlene Alfaro MD Primary Care Provider Un available Encounter Details Date Type Department Care Team Description 09/18/2021 Telephone Adult Medicine - [address] [address] Dago Wilson, Social History Tobacco Use Types [...] often do you attend chur ch or roman catholic services? Never 05/31/2023 Do you belong to any clubs o r organizations such as alevism groups, unions, fraternal or athletic groups, or [...] place to sleep or slept in a senior care (including now)? No 05/31/2023 Sex Assigned at Date Recorded Not on file COVID-19 Exposure Response Date Recorded In the last month, have you been in contact with someone who was confirmed or suspected to have Coronavirus / COVID-19? No / Unsure 08/19/2021 10:43 AM EST documented as of this encounter Miscellaneous Notes * Telephone Encounter - Jackelin Angulo M.A. - 09/18/2021 2:01 PM EST ----- Message from Dago Wilson DO sent at 09/18/2021 12:28 PM EST ----- Labs reviewed, normal findings except some borderline abnormal numbers. Repeat lab after [address] later documented in this encounter Plan of Treatment Not on file documented as of this encounter Visit Diagnoses Not on filedocumented in this encounter Care Teams Hook And Eye Machine Operator Relationship Specialty Start Date End Date Dago Wilson DO PCP - General Internal Medicine 07/08/21 12/23/23 Arlene Gomes MD PCP - General Internal Medicine 12/24/23 documented as of this encounter
--- OUTSIDE RECORDS SUMMARY | 2024-11-09 07:59 | XMS_ITS | Encounter Summary ---
Author Organization [facility] Address [address] [place] [address] Care Team Providers Care Plant Supervisor Name Role Phone Dago Wilson DO Primary Care Provider Arlene Alfaro MD Primary Care Provider Un available Encounter Details Date Type Department Care Team Description 12/22/2022 Lard Bleacher Report Medical Records [address] [place] [address] Gary Greene Social History Tobacco Use Types [...] often do you attend chur ch or mormonism services? Never 05/31/2023 Do you belong to any clubs o r organizations such as oriental orthodox groups, unions, fraternal or athletic groups, or [...] on filedocumented in this encounter Care Teams Plant Supervisor Relationship Specialty Start Date End Date Dago Wilson DO PCP - General Internal Medicine 07/08/21 12/23/23 Arlene Gomes MD PCP - General Internal Medicine 12/24/23 documented as of this encounter
--- OUTSIDE RECORDS SUMMARY | 2024-11-09 07:59 | XMS_ITS | Encounter Summary ---
Author Organization [facility] Address [address] [place] [address] Care Team Providers Care Central Office Installer Name Role Phone Edvin Weir MD Primary Care Provider Mohamud Tomas Pcp Primary Care Provider Renee Colon MD Primary Care Provider [phone] Dago Wilson DO Primary Care Provider Arlene Alfaro MD Primary Care Provider Un available Encounter Details Date Type Department Care Team Description 04/18/2020 Release of Information Medical Records [address] [place] [address] Abstract, Provider Social History Tobacco Use Types [...] often do you attend chur ch or restorationism services? Never 05/31/2023 Do you belong to any clubs o r organizations such as religion groups, unions, fraternal or athletic groups, or [...] place to sleep or slept in a mcfp (including now)? No 05/31/2023 Sex Assigned at Date Recorded Not on file documented as of this encounter Nursing Notes * Cindy Gorman - 04/18/2020 10:44 AM EDT AUTHORIZATION TO OBTAIN RECORDS MAILED TO [facility] documented in this encounter Plan of Treatment Not on file documented as of this encounter Visit Diagnoses Not on filedocumented in this encounter Care Teams Central Office Installer Relationship Specialty Start Date End Date Edvin Weir MD PCP - General Internal Medicine 04/15/20 07/31/20 [facility] PCP - General Internal Medicine 08/01/20 08/15/20 Renee Araya MD PCP - General Internal Medicine 08/16/20 07/07/21 Dago Wilson DO PCP - General Internal Medicine 07/08/21 12/23/23 Arlene Gomes MD PCP - General Internal Medicine 12/24/23 documented as of this encounter
== END 2024-11-09 07:54 | disposition home or self-care (01) ==
LOC: HO.MAMMO 07:53
PROVIDERS: PCP Physician Assistant Medical; Visit Provider Physician Assistant Medical
DX: Z13.820 Encounter for screening for osteoporosis (principal); Z78.0 Asymptomatic menopausal state; D72.819 Decreased white blood cell count, unspecified; R74.8 Abnormal levels of other serum enzymes
CPT/HCPCS: 77080

== ENCOUNTER → 2024-11-09 08:45 | Outpatient (BNV) | payer MEDICARE, SELFPAY | PROVIDERS: PCP Physician Assistant Medical; Visit Provider Radiology Diagnostic Radiology | DX: E28.39 Other primary ovarian failure (principal) | CPT/HCPCS: 77080 ==

== ENCOUNTER 2024-11-13 08:46 | Outpatient (AMB) | payer MEDICARE, SELFPAY ==
--- NOTE | 2024-11-13 08:52 | A.OFFPC_ITS ---
Vital Signs 11/13/24 08:59 Height 5 ft 4 in Weight 156 lb 4 oz BMI 26.8 BP 116/78 Blood Pressure Location Rt brachial Position Sitting Pulse 61 Pulse Source Pulse Oximeter Temp 97.9 F Temp Source Temporal Artery Scan Pulse Oximetry (%) 97 Oxygen Delivery Method Room Air Intake Visit Reasons: follow up headaches Intake Note: Sakshi presents in the office today for a follow up to headaches and her labs. Allergies codeine Allergy (Intermediate, Verified 11/13/24 08:55) Unknown Tobacco use date assessed: 11/13/24 Fall risk assessment: No Falls in past year Last assessed Fall Risk: 11/13/24 Dental Screening Dental Screen Date: 11/13/24 Did you have a dental visit in the last 12 months?: Yes Did you have a dental problem in the last 6 months where you did not have access to dental care?: No Was dental information given to patient?: Patient has dentist HPI HPI Comments History of Present Illness Details This is a 69-year-old female with a past medical history of a right cochlear implant, headache, elevated alkaline phosphatase level and anxiety presenting for follow up. SNHL-symptoms since 47 years old. S/p right cochlear implant. She uses a hearing aid on the left. She sees Dr. Greene. Headaches-she endorses headaches for the past 2 years. Since our last visit they have improved. She had 2 headaches in October which she treated with ibuprofen 600 mg and rest. This alleviated symptoms. Headaches are associated with light sensitivity. Pain is generalized and describes as aching and tension. She continues to deny alert neurologic deficits associated with the headaches. She talked to her ear nose and throat provider because they started after her CI, but it was not felt that these were related. She is sleeping well. She does not grind her teeth or clench her jaw that she is aware of. I had ordered an MRI when I saw her initially because she reported increasing headaches. Her ear nose and throat office confirmed she could have this with a CI, but the radiology department advised against it because of the risk. She started therapy. She had intake and 1 session at [facility]. She is going to continue it. Patient's blood count was reviewed with her today. Bilirubin and liver function normal. Her repeat alkaline phosphatase level and alk-phos isoenzymes is pending. Alkaline phosphatase was 250 when it was checked in September this year. She had a bone density exam 4 days ago which was consistent with osteopenia. Cologuard negative 10/16/24. Last mammogram April 2024. ROS: Constitutional: No unexplained weight loss, fever, chills, fatigue or night sweats. Eyes: No vision changes, blurry vision, double vision, eye pain, eye redness, eye discharge. ENT: No hearing loss, sneezing, congestion, runny nose or sore throat. Respiratory: No shortness of breath, cough or sputum production. Cardiovascular: No chest pain, chest pressure or chest discomfort. No palpitations or pedal edema. Gastrointestinal: No anorexia, nausea, vomiting or diarrhea. No abdominal pain or blood in stool. Neurologic: No tremors, seizures, dizziness, syncope, unilateral weakness, ataxia, numbness or tingling in the extremities. Musculoskeletal: No neck pain Psychiatric: No depression. No SI/HI. Physical exam: Constitutional: Alert, in no distress. Head: Normocephalic. Eyes: Pupils are equal, round and reactive to light. Extraocular muscles intact. Neck: Supple, Full range of motion. No lymphadenopathy. No palpable thyroid masses. Respiratory: Clear to auscultation. Cardiovascular: S1 S2 regular. No murmurs. Cervical spine: No gross deformities. Normal range of motion. Nontender. Extremities: Warm and well perfused. No clubbing, cyanosis or edema. [facility] Medical History (Updated 11/14/24 @ 13:12 by SAM Browning) Osteopenia Headache Decreased white blood cell count Elevated alkaline phosphatase level Stress Worsening headaches Cochlear implant in place Surgical History (Updated 09/18/24 @ 15:49 by Jeannette Oneal CMA) H/O hernia repair H/O: hysterectomy Family History Mother Glaucoma Mental health disorder Social History (Updated 11/13/24 @ 08:56 by Yajaira Guajardo MA) Household Members: Spouse and Children Housing: House Alcohol intake: never Patient Tobacco Use Status: Never used Tobacco e-Cigarette/Vaping Use: Never Used Second Hand Smoke Exposure: No service: No Current occupational status: retired Cognitive needs: No Hearing needs: Yes Vision needs: Yes Questionnaire PHQ-9 Over the last 2 weeks, how often have you been bothered by any of the following problems? 1. Little interest or pleasure in doing things: not at all 2. Feeling down, depressed, or hopeless: not at all 3. Trouble falling or staying asleep, or sleeping too much: several days 4. Feeling tired or having little energy: not at all 5. Poor appetite or overeating: not at all 6. Feeling bad about yourself - or that you are a failure or have let yourself or your family down: not at all 7. Trouble concentrating on things, such as reading the newspaper or watching television: not at all 8. Moving or speaking so slowly that other people could have noticed. Or the opposite - being so fidgety or restless that you have been moving around a lot more than usual: not at all 9. Thoughts that you would be better off or of hurting yourself in some way: not at all Total score: 1 Depression Screening Interpretation: Negative Depression Screening Done: Yes 28510 - PHQ-9 Billing: Patient declined-do not bill Source: Developed by Drs. Lisandro Solorzano, Zuleyka Phelps, Emeterio Montanez and colleagues, with an educational jacoby from [employer]. Thrive Questionnaire Date Thrive assessed: 11/13/24 I am a: Patient What is your living situation today?: I have a steady place to live Within the past 12 months, did the food you bought not last and you didn't have the money to get more?: Never true Within the past 12 months, did you worry whether your food would run out before you got money to buy more?: Never true Do you have trouble paying for medicines?: No Do you have trouble getting transportation to medical appointments?: No Do you have trouble paying your heating and electricity bill?: No Do you have trouble taking care of your child, family member or friend?: No Do you have trouble with day-to-day activities such as bathing, preparing meals, shopping, managing finances, etc.?: No Are you currently unemployed and looking for a job?: No Are you interested in more education?: Yes Currently or been in a relationship where the following occur: I choose not to answer THRIVE Score: 0 AUDIT C Alcohol Use Questionnaire (AUDIT-C) 1. How often do you have a drink containing alcohol?: Never Total Score: 0 Score Reviewed/Action Taken: No JACQUELINE-7 AMB Questionnaire JACQUELINE-7 Date JACQUELINE - 7 assessed: 11/13/24 Feeling nervous, anxious, or on edge: 0 = Not at all Not being able to stop or control worryin = Not at all Worrying too much about different things: 1 = Several days Trouble relaxin = Not at all Being so restless that it is hard to sit still: 0 = Not at all Becoming easily annoyed or irritable: 0 = Not at all Feeling afraid as if something awful might happen: 0 = Not at all Total JACQUELINE-7 score (0-4 normal; 5-9 mild; 10-14 moderate; 15-21 severe): 1 Source: Developed by Drs. Lisandro Solorzano, Zuleyka Phelps, Emeterio Montanez and colleagues, with an educational jacboy from [employer]. JACQUELINE-7 Assessment Billing JACQUELINE-7 Assessment Tool: JACQUELINE-7 Assessment 87514 Physical exam (Primary Care) Vital Signs: Last Vital Signs Temp 97.9 F 11/13/24 08:59 Pulse 61 11/13/24 08:59 BP 116/78 11/13/24 08:59 Pulse Ox 97 11/13/24 08:59 Oxygen Delivery Method Room Air 11/13/24 08:59 BMI result Body Mass Index 26.8 Tobacco/Smoking Status: Tobacco use Status Tobacco use date assessed 11/13/24 11/13/24 08:56 Patient Tobacco Use Status Never used Tobacco 11/13/24 08:56 e-Cigarette/Vaping Use Never Used 11/13/24 08:56 PHQ-9: PHQ-9 Score PHQ-9: Total score 1 11/13/24 09:06 Depression Screening Interpretation: Negative Thrive Assessment: Date of Thrive Assessment Date Thrive assessed 11/13/24 11/13/24 09:03 Currently or been in a relationship where the following occur: I choose not to answer Coding Level of Care Code Est Pt Level 4 (56786) Complex EM visit Add On G2211 Diagnoses Stress F43.9 Elevated alkaline phosphatase level R74.8 Other headache syndrome G44.89 Headache type: other headache syndrome Osteopenia M85.80 Additional Codes JACQUELINE-7 Assessment Billing - JACQUELINE-7 Assessment Tool: JACQUELINE-7 Assessment 50141 ([id number]) Assessment & Plan Assessment & Plan (1) Stress: Code(s): F43.9 - Reaction to severe stress, unspecified Category: Medical (2) Elevated alkaline phosphatase level: Code(s): R74.8 - Abnormal levels of other serum enzymes Category: Medical (3) Headache: Code(s): R51.9 - Headache, unspecified Category: Medical Qualifiers: Headache type: other headache syndrome Qualified Code(s): G44.89 - Other headache syndrome (4) Osteopenia: Code(s): M85.80 - Other specified disorders of bone density and structure, unspecified site Category: Medical Plan The patient will continue ibuprofen 600 mg at the start of a headache with food and every 6 hours as needed. This has been effective. Reviewed the importance of hydration, adequate nutrition and sleep. Stress may contribute to these. She accepts referral to the headache clinic. MRI was not advised by MRI due CI We will hold off on CT at this time since headaches have improved and are responding to treatment. No neurological deficits. She will continue counseling. Elevated alkaline phosphatase level may be associated with osteopenia and bony turnover, and I will let her know when I have the results of the isoenzymes. Recommended regular exercise, avoidance of smoking and reviewed calcium and vitamin-D recommendations for osteopenia. Bone density exam should be repeated in 2 years. Follow up in 3 months.
[2024-11-13 08:59] VITALS: BP 116/78; PULSE 61; TEMP 36.6; O2SAT 97; BMI 26.8
--- OUTSIDE RECORDS SUMMARY | 2024-11-13 09:10 | XMS_ITS | Encounter Summary ---
Author Organization [facility] Address [address] [place] [address] Care Team Providers Care Search Analyst Name Role Phone Dago Wilson DO Primary Care Provider Arlene Alfaro MD Primary Care Provider Un available Encounter Details Date Type Department Care Team Description 07/14/2022 Deaf Teacher Report Medical Records [address] [place] [address] Gary Greene Social History Tobacco Use Types [...] often do you attend chur ch or advent services? Never 05/31/2023 Do you belong to any clubs o r organizations such as jehovah's witness groups, unions, fraternal or athletic groups, or [...] place to sleep or slept in a half-way (including now)? No 05/31/2023 Sex Assigned at Date Recorded Not on file documented as of this encounter Plan of Treatment Not on file documented as of this encounter Visit Diagnoses Not on filedocumented in this encounter Care Teams Search Analyst Relationship Specialty Start Date End Date Dago Wilson DO PCP - General Internal Medicine 07/08/21 12/23/23 Arlene Gomes MD PCP - General Internal Medicine 12/24/23 documented as of this encounter
--- OUTSIDE RECORDS SUMMARY | 2024-11-13 09:11 | XMS_ITS | Clinical Summary ---
Author Organization [facility] Address [address] [place] [address] Care Team Providers Care Geometry Teacher Name Role Phone Arlene Gomes MD Primary Care Provider Un available Allergies Active Allergy Reactions Severity Noted Date Comments Codeine hallucinations 08/19/2021 Medications Medication Sig Dispensed Refills Start Date End Date Status Multiple Vitamins-Minerals (Multivitamin Adults 50+) Tab Take by mouth. 0 Active brimonidine (ALPHAGAN) 0.2 % ophthalmic solution INSTILL 1 DROP IN BOTH EYES 2 TIMES PER DAY 0 03/11/2024 Active Active Problems Problem Noted Date Varicose vein of leg 08/19/2021 Hearing loss 08/19/2021 Overview: Waiting for cochlear implant Resolved Problems Problem Noted Date Resolved Date Hernia cerebri 08/19/2021 08/19/2021 Phlebitis 08/19/2021 08/19/2021 Immunizations Name Administration Dates Next Due COVID-19 (Pfizer) 06/15/2021,10/21/2020,10/01/19 21 COVID-19 (Pfizer) Pt Reported 06/15/2021, 021,09/30/2020 Influenza Flu (PT Reported) 02/13/2021 Influenza vaccine high dose age 65 and over 10/0 01/2024 Pneumococcal Conjugate PCV-13 01/17/2021, 021 Family History Medical History Relation Name Comments Depression Brother 1 No Known Problems Brother 2 No Known Problems Brother 3 No Known Problems Brother 4 No Known Problems Daughter logging accident Father Suicide Mother No Known Problems Sister 1 No Known Problems Sister 2 Testicular Cancer Son 1 No Known Problems Son 2 No Known Problems Son 3 Relation Name Status Comments Brother 1 Alive Brother 2 Alive Brother 3 Alive Brother 4 Alive Daughter Alive Father Mother Sister 1 Alive Sister 2 Alive Son 1 Alive Son 2 Alive Son 3 Alive Social History Tobacco Use Types Packs/Day Years Used Date Smoking Tobacco: Never Smokeless Tobacco: Never Tobacco Cessation:Counseling Given: Not Answered Alcohol Use Standard Drinks/Week Comments Not Currently [...] week 05/31/2023 How often do you attend [facility] or [facility] services? Never 05/31/2023 Do you belong to any clubs o r organizations such as uatsdin groups, unions, fraternal or athletic groups, or [...] place to sleep or slept in a fci (including now)? No 05/31/2023 Sex Assigned at Date Recorded Not on file Last Filed Vital Signs Vital Sign Reading Time Taken Comments Blood Pressure 102/70 04/17/2024 2:34 PM EDT Pulse 80 04/17/2024 2:34 PM EDT Temperature 36.2 ??C (97.1 ??F) 04/17/2024 2:34 PM ED T Respiratory Rate - - Oxygen Saturation 98% 07/15/2023 9:37 AM EST Inhaled Oxygen Concentration - - Weight 69.4 kg (153 lb) 04/17/2024 2:34 PM EDT Height 165.1 cm (5' 5 ) 04/17/2024 2:34 PM EDT Body Mass Index 25.46 04/17/2024 2:34 PM EDT Plan of Treatment Health Maintenance Due Date Last Done Comments DTAP/TDAP/TD (1 - Tdap) 1976 COLON CANCER SCREEN WITH STO OL CARD 2007 SHINGLES VACCINE (1 of 2) 2007 BONE DENSITY SCREENING 2022 PNEUMOCOCCAL VACCINE (2 - PP SV23 or PCV20) 2022 01/17/2021, 11/19/2020 Covid-19 Vaccine (7 - 2022-2 4 season) 2024 06/15/2021, 06/15/2021, 10/21/2020, Additional history exists MAMMOGRAM 05/27/2024 05/27/2023, 04/12, 05/06/2022, Additional history exists BMI CHECK/ADVISE 07/12/2024 04/17/2024, 08/19/2021 CHOLESTEROL SCREENING 09/18/2026 09/18/2021 HEPATITIS C SCREENING Completed 09/18/2021 INFLUENZA Completed 04/17/2024, 02/13/2021 Care Teams Geometry Teacher Relationship Specialty Start Date End Date Arlene Gomes MD PCP - General Internal Medicine 12/24/23
--- OUTSIDE RECORDS SUMMARY | 2024-11-13 09:11 | XMS_ITS | Encounter Summary ---
Author Organization [facility] Address [address] [place] [address] Care Team Providers Care Cutter Grind Tool Technician Name Role Phone Edvin Weir MD Primary Care Provider Mohamud Tomas Pcp Primary Care Provider Renee Colon MD Primary Care Provider [phone] Dago Wilson DO Primary Care Provider Arlene Alfaro MD Primary Care Provider Un available Encounter Details Date Type Department Care Team Description 04/18/2020 Release of Information Medical Records [address] [place] [address] Abstract, Provider Social History Tobacco Use Types [...] often do you attend chur ch or episcopalian services? Never 05/31/2023 Do you belong to any clubs o r organizations such as jain groups, unions, fraternal or athletic groups, or [...] place to sleep or slept in a care home (including now)? No 05/31/2023 Sex Assigned at Date Recorded Not on file documented as of this encounter Plan of Treatment Not on file documented as of this encounter Visit Diagnoses Not on filedocumented in this encounter Care Teams Cutter Grind Tool Technician Relationship Specialty Start Date End Date Edvin Weir MD PCP - General Internal Medicine 04/15/20 07/31/20 [facility], Pcp PCP - General Internal Medicine 08/01/20 08/15/20 Renee Araya MD PCP - General Internal Medicine 08/16/20 07/07/21 Dago Wilson DO PCP - General Internal Medicine 07/08/21 12/23/23 Arlene Gomes MD PCP - General Internal Medicine 12/24/23 documented as of this encounter
--- OUTSIDE RECORDS SUMMARY | 2024-11-13 09:11 | XMS_ITS | Encounter Summary ---
Author Organization [facility] Address [address] [place] [address] Care Team Providers Care Extender Name Role Phone Dago Wilson DO Primary Care Provider Arlene Alfaro MD Primary Care Provider Un available Encounter Details Date Type Department Care Team Description 08/21/2021 Release of Information Medical Records [address] [place] [address] Abstract, Provider Social History Tobacco Use Types [...] often do you attend chur ch or latter day services? Never 05/31/2023 Do you belong to any clubs o r organizations such as temple groups, unions, fraternal or athletic groups, or [...] place to sleep or slept in a [place] (including now)? No 05/31/2023 Sex Assigned at [...] on filedocumented in this encounter Care Teams Extender Relationship Specialty Start Date End Date Dago Wilson DO PCP - General Internal Medicine 07/08/21 12/23/23 Arlene Gomes MD PCP - General Internal Medicine 12/24/23 documented as of this encounter
== END 2024-11-13 09:24 | disposition home or self-care (01) ==
LOC: HO.HMCFM 08:47
PROVIDERS: PCP Physician Assistant Medical; Visit Provider Physician Assistant Medical
DX: F43.9 Reaction to severe stress, unspecified (principal); R74.8 Abnormal levels of other serum enzymes; G44.89 Other headache syndrome; M85.80 Other specified disorders of bone density and structure, unspecified site

== ENCOUNTER → 2024-11-13 08:46 | Outpatient (BNVA) | payer MEDICARE, SELFPAY | PROVIDERS: PCP Physician Assistant Medical; Visit Provider Physician Assistant Medical | DX: F43.9 Reaction to severe stress, unspecified (principal); R74.8 Abnormal levels of other serum enzymes; M85.80 Other specified disorders of bone density and structure, unspecified site; G44.89 Other headache syndrome | CPT/HCPCS: 96127; 99212 ==

== ENCOUNTER 2025-01-09 08:56 | Outpatient (REF) | payer MEDICARE, SELFPAY ==
--- NOTE | ~2025-01-09 | US_ITS ---
EXAMINATION: US ABDOMEN COMPLETE CLINICAL INFORMATION: Elevated alkaline phosphatase-. COMPARISON: None available. TECHNIQUE: Real-time ultrasound of the abdomen using grayscale technique. FINDINGS: PANCREAS: No peripancreatic fluid collections. ABDOMINAL AORTA: The proximal, mid, and distal segments are normal in caliber. INFERIOR VENA CAVA: Visualized portions are normal. LIVER: Liver measures 13 cm third technologist. Coarse echotexture . 3.5 cm hyperechoic area in the right hepatic lobe without flow on color Doppler interrogation or gross vascular distortion. No nodular surface. Main portal vein is patent. No intrahepatic biliary ductal dilatation. GALLBLADDER: There is a 4 mm polypoid isoechoic abnormality attached to the gallbladder wall neck without flow on color Doppler interrogation. There are other few, less than 5 mm attached to the gallbladder wall without flow on color Doppler interrogation. No pericholecystic fluid collection or gallbladder wall thickening. COMMON BILE DUCT: 7 mm. RIGHT KIDNEY: 9 cm. Normal echotexture. Normal renal cortical thickness. No hydronephrosis. No gross solid or cystic lesion detected.. LEFT KIDNEY: 10 cm. Normal echotexture. Normal renal cortical thickness. No hydronephrosis. No gross solid or cystic lesion. . SPLEEN: 9 cm. FREE FLUID: None. US/US abdomen complete IMPRESSION: 3.4 cm echogenic area, right hepatic lobe. Statistically may correspond to a focal fatty infiltration. Multiple less than 5 mm polyps, gallbladder. Recommend follow-up ultrasound in 6 month or as clinically warranted. No hydronephrosis. No ascites. Electronically signed by: Jake Singh MD 01/09/2025 10:11 AM EDT
== END 2025-01-09 08:57 | disposition home or self-care (01) ==
LOC: HO.US 08:56
PROVIDERS: PCP Physician Assistant Medical; Visit Provider Physician Assistant Medical
DX: R74.8 Abnormal levels of other serum enzymes (principal)
CPT/HCPCS: 76700

== ENCOUNTER → 2025-01-09 08:59 | Outpatient (BNV) | payer MEDICARE, SELFPAY | PROVIDERS: PCP Physician Assistant Medical; Visit Provider Radiology Diagnostic Radiology | DX: K82.4 Cholesterolosis of gallbladder (principal) | CPT/HCPCS: 76700 ==

== ENCOUNTER 2025-02-09 08:16 | Outpatient (REF) | payer SELFPAY ==
--- NOTE | 2025-02-09 09:20 | MHC.AU.HA3 ---
Hearing Instrument Follow-Up- Binaural Date of Visit: 02/09/25 Right Ear: Make, Model, Color, Serial Number: ReSound Erasmo Q7 HP BTE ([id number] - DWHT) Color: 74 [id number] NOW PROGRAMMED FOR THE LEFT EAR BACKUP; HAS CI Link Assembler Repair Warranty: 07/13/2025 Link Assembler Loss and Damage Warranty: 07/13/2025 [facility] Service Plan: 07/17/2023 Battery Size: 13 Recreational Facilities Motel Manager/Slim Tube: NA Earmold/Dome/CShell/SlimTip:Microsonic M45 canal lock Type of Wax Guard: Dispensed By: [facility] Date of Fittin07/17/2022 Left Ear: Make, Model, Color, Serial Number: ReSound Erasmo Q7 HP BTE ([id number] - DWHT) Color: 74 (DK BR) [id number] Link Assembler Repair Warranty: 07/13/2025 Link Assembler Loss and Damage Warranty: 07/13/2025 [facility] Service Plan: 07/17/2023 Battery Size: 13 Recreational Facilities Motel Manager/Slim Tube: NA Earmold/Dome/CShell/SlimTip: Microsonic M45 canal lock Type of Wax Guard: Dispensed By: [facility] Date of Fittin07/17/2022 Follow-Up Summary: Seen for maintenance on left aid [id number]. Tube is hard, some wax build up in tube. Sakshi reports mold is slipping off tube. Cleaned aid, vacuumed microphones. Cleaned ear mold and re-tubed with TRS tubing. Listening check positive. Sakshi reports improvement. Recommendations: Recommendations: Hearing instrument follow-up or maintenance as needed. Diagnosis Code(s): Primary Diagnosis: H90.3 Bilateral Sensorineural Hearing Loss Signature: Provider: Ruddy Magana, [facility]
== END 2025-02-09 08:17 | disposition home or self-care (01) ==
LOC: HO.HAP 08:16
PROVIDERS: Visit Provider Physician Assistant Medical
DX: Z46.1 Encounter for fitting and adjustment of hearing aid (principal); H90.3 Sensorineural hearing loss, bilateral
CPT/HCPCS: 92592

== ENCOUNTER 2025-02-22 09:49 | Outpatient (AMB) | payer MEDICARE, SELFPAY ==
--- NOTE | 2025-02-22 10:00 | MHC.PC.OV ---
Vital Signs 02/22/25 10:05 Height 5 ft 4 in Weight 156 lb 4 oz BMI 26.8 BP 100/55 L Blood Pressure Location Lt brachial Position Sitting Respiration 16 Pulse 98 Pulse Source Pulse Oximeter Temp 97.6 F Temp Source Oral Pulse Oximetry (%) 98 Oxygen Delivery Method Room Air Intake Visit Reasons: follow up headaches and behavioral Intake Note: patient here for follow up on headaches and behavioral Mh Teacher Required: No Is last menstrual period known: No Post menopausal: No Patient : No Allergies codeine Allergy (Intermediate, Verified 02/22/25 10:04) Unknown Tobacco use date assessed: 02/22/25 Fall risk assessment: No Falls in past year Last assessed Fall Risk: 02/22/25 Dental Screening Dental Screen Date: 02/22/25 Did you have a dental visit in the last 12 months?: Yes Did you have a dental problem in the last 6 months where you did not have access to dental care?: No Was dental information given to patient?: Patient has dentist HPI HPI Comments History of Present Illness Details This is a 69-year-old female with a past medical history of a right cochlear implant, headache, elevated alkaline phosphatase level and anxiety presenting for follow up. SNHL-symptoms since 47 years old. S/p right cochlear implant. She uses a hearing aid on the left. She sees Dr. Greene. She is followed by [facility] for migraine headaches. She takes Ibuprofen about once per week. This alleviates symptoms. Headaches are associated with light sensitivity. Pain is generalized and describes as aching and tension. She continues to deny alert neurologic deficits associated with the headaches. She talked to her ear nose and throat provider because they started after her CI, but it was not felt that these were related. She is sleeping well. She does not grind her teeth or clench her jaw that she is aware of. I had ordered an MRI when I saw her initially because she reported increasing headaches. Her ear nose and throat office confirmed she could have this with a CI, but the radiology department advised against it because of the risk. She has a headache today. She did not take ibuprofen yet. She was seeing a therapist for anxiety, but she has decided to take a break, and she is doing okay. The patient saw Gastroenterology in [place] for evaluation of elevated alkaline phosphatase with corresponding high intestinal alkaline phosphatase. She has a follow up in June, but she says they did blood work, and she did not get the results yet. They also discussed getting a CAT scan and colonoscopy. Cologuard negative 10/16/24. Last mammogram April 2024. ROS: Constitutional: No unexplained weight loss, fever, chills, fatigue or night sweats. Eyes: No vision changes, blurry vision, double vision, eye pain, eye redness, eye discharge. ENT: No hearing loss, sneezing, congestion, runny nose or sore throat. Respiratory: No shortness of breath, cough or sputum production. Cardiovascular: No chest pain, chest pressure or chest discomfort. No palpitations or pedal edema. Gastrointestinal: No anorexia, nausea, vomiting or diarrhea. No abdominal pain or blood in stool. Neurologic: No tremors, seizures, dizziness, syncope, unilateral weakness, ataxia, numbness or tingling in the extremities. Psychiatric: No depression. No SI/HI. Physical exam: Constitutional: Alert, in no distress. Head: Normocephalic. Eyes: Pupils are equal, round and reactive to light. Extraocular muscles intact. Neck: Supple, Full range of motion. No lymphadenopathy. No palpable thyroid masses. Respiratory: Clear to auscultation. Cardiovascular: S1 S2 regular. No murmurs. Abdomen: Soft, nontender, no palpable masses, organomegaly, rebound or guarding Neurologic:?Alert and oriented x 3, no focal deficits observed, [id number] normal, sensation equal and symmetric, strength UE and LE 5/5 bilaterally, reflexes equal and symmetric.? Normal gait. No pronator drift.? Negative Romberg. Cervical spine: No gross deformities. Normal range of motion. Nontender. Extremities: Warm and well perfused. No clubbing, cyanosis or edema. [facility] Medical History (Updated 01/15/25 @ 08:50 by SAM Browning) Gallbladder polyp High intestinal alkaline phosphatase level Osteopenia Headache Decreased white blood cell count Elevated alkaline phosphatase level Stress Worsening headaches Cochlear implant in place Surgical History (Updated 09/18/24 @ 15:49 by Jeannette Oneal CMA) H/O hernia repair H/O: hysterectomy Family History Mother Glaucoma Mental health disorder Social History (Updated 05/05/25 @ 08:56 by Yajaira Guajardo MA) Household Members: Spouse and Children Housing: House Alcohol intake: never Patient Tobacco Use Status: Never used Tobacco e-Cigarette/Vaping Use: Never Used Second Hand Smoke Exposure: No service: No Current occupational status: retired Cognitive needs: No Hearing needs: Yes Vision needs: Yes Questionnaire Thrive Questionnaire Date Thrive assessed: 09/18/24 I am a: Patient What is your living situation today?: I have a steady place to live Within the past 12 months, did the food you bought not last and you didn't have the money to get more?: Never true Within the past 12 months, did you worry whether your food would run out before you got money to buy more?: Never true Do you have trouble paying for medicines?: No Do you have trouble getting transportation to medical appointments?: No Do you have trouble paying your heating and electricity bill?: No Do you have trouble taking care of your child, family member or friend?: No Do you have trouble with day-to-day activities such as bathing, preparing meals, shopping, managing finances, etc.?: No Are you currently unemployed and looking for a job?: No Are you interested in more education?: Yes Currently or been in a relationship where the following occur: I choose not to answer THRIVE Score: 0 JACQUELINE-7 AMB Questionnaire JACQUELINE-7 Date JACQUELINE - 7 assessed: 11/13/24 Source: Developed by Drs. Lisandro Solorzano, Zuleyka Phelps, Emeterio Montanez and colleagues, with an educational jacoby from [employer]. Physical exam (Primary Care) Vital Signs: Last Vital Signs Temp 97.6 F 02/22/25 10:05 Pulse 98 02/22/25 10:05 Resp 16 02/22/25 10:05 BP 100/55 L 02/22/25 10:05 Pulse Ox 98 02/22/25 10:05 Oxygen Delivery Method Room Air 02/22/25 10:05 BMI result Body Mass Index 26.8 Tobacco/Smoking Status: Tobacco use Status Tobacco use date assessed 02/22/25 02/22/25 10:08 Patient Tobacco Use Status Never used Tobacco 02/22/25 10:02 e-Cigarette/Vaping Use Never Used 02/22/25 10:02 Thrive Assessment: Date of Thrive Assessment Date Thrive assessed 09/18/24 02/22/25 10:02 Currently or been in a relationship where the following occur: I choose not to answer Coding Level of Care Code Est Pt Level 4 (91071) Complex EM visit Add On G2211 Diagnoses Stress F43.9 Elevated alkaline phosphatase level R74.8 Other headache syndrome G44.89 Headache type: other headache syndrome Osteopenia M85.80 Assessment & Plan Assessment & Plan (1) Stress: Code(s): F43.9 - Reaction to severe stress, unspecified Category: Medical (2) Elevated alkaline phosphatase level: Code(s): R74.8 - Abnormal levels of other serum enzymes Category: Medical (3) Headache: Code(s): R51.9 - Headache, unspecified Category: Medical Qualifiers: Headache type: other headache syndrome Qualified Code(s): G44.89 - Other headache syndrome (4) Osteopenia: Code(s): M85.80 - Other specified disorders of bone density and structure, unspecified site Category: Medical Plan The patient will continue ibuprofen 600 mg at the start of a headache with food and every 6 hours as needed. This has been effective. Reviewed the importance of hydration, adequate nutrition and sleep. Stress may contribute to these. She has a follow up scheduled with Neurology. MRI was not advised by MRI due CI We will hold off on CT at this time since headaches have improved and are responding to treatment. No neurological deficits. Anxiety is stable, and she completed counseling. She is aware to follow up with the therapist if she has worsening anxiety or stress. Records requested from Gastroenterology. Patient is going to call the office to request the results of her lab work and timeline for CAT scan and colonoscopy. Recommended regular exercise, avoidance of smoking and reviewed calcium and vitamin-D recommendations for osteopenia. Bone density exam should be repeated in 2 years. Follow up in 3 months for a physical exam.
[2025-02-22 10:05] VITALS: BP 100/55; PULSE 98; RESP 16; TEMP 36.4; O2SAT 98; BMI 26.8
== END 2025-02-22 10:40 | disposition home or self-care (01) ==
LOC: HO.HMCFM 09:52
PROVIDERS: PCP Physician Assistant Medical; Visit Provider Physician Assistant Medical
DX: F43.9 Reaction to severe stress, unspecified (principal); R74.8 Abnormal levels of other serum enzymes; G44.89 Other headache syndrome; M85.80 Other specified disorders of bone density and structure, unspecified site

== ENCOUNTER → 2025-02-22 09:49 | Outpatient (BNVA) | payer MEDICARE, SELFPAY | PROVIDERS: PCP Physician Assistant Medical; Visit Provider Physician Assistant Medical | DX: G44.89 Other headache syndrome (principal); F43.9 Reaction to severe stress, unspecified; R74.8 Abnormal levels of other serum enzymes; M85.80 Other specified disorders of bone density and structure, unspecified site; H90.3 Sensorineural hearing loss, bilateral | CPT/HCPCS: 99212 ==

== ENCOUNTER 2025-06-04 09:52 | Outpatient (AMB) | payer MEDICARE, SELFPAY ==
--- NOTE | 2025-06-04 10:01 | A.OFFPC_ITS ---
Vital Signs 06/04/25 10:04 Height 5 ft 4 in Weight 155 lb 4 oz BMI 26.6 BP 110/72 Blood Pressure Location Rt brachial Position Sitting Respiration 16 Pulse 65 Pulse Source Pulse Oximeter Temp 97.6 F Temp Source Temporal Artery Scan Pulse Oximetry (%) 98 Oxygen Delivery Method Room Air Intake Visit Reasons: physical exam Intake Note: Sakshi presents in the office today for her annual exam. 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 Post menopausal: Yes Allergies codeine Allergy (Intermediate, Verified 06/04/25 10:03) Unknown Medication List - Last Reconciled 06/04/25 by SAM Browning brimonidine 0.2% drps ophthalmic (eye) carbamide peroxide 6.5% (Debrox) 5 drps otic (ears) Q12H 4 days ibuprofen 600 mg PO Q6H PRN multivitamin-calcium carb-iron tabs PO Tobacco use date assessed: 06/04/25 Dental Screening Dental Screen Date: 06/04/25 Did you have a dental visit in the last 12 months?: Yes Did you have a dental problem in the last 6 months where you did not have access to dental care?: No Was dental information given to patient?: Patient has dentist HPI HPI Comments History of Present Illness Details This is a 70-year-old female with a past medical history of a right cochlear implant, headache, elevated alkaline phosphatase level and anxiety presenting for a physical. SNHL-symptoms since 47 years old. S/p right cochlear implant. She uses a hearing aid on the left. She sees Dr. Greene. She is followed by [facility] for migraine headaches. She went a full 6 weeks without migraines. Hydration and fresh air made a big difference. She was seeing a therapist for anxiety, but she decided to take a break, and she has been doing okay. The patient saw Gastroenterology in [place] for evaluation of elevated alkaline phosphatase with corresponding high intestinal alkaline phosphatase. Patient says they were supposed to get a CAT scan and colonoscopy ordered, but she never heard back from them. She does not think she has a follow up scheduled. I ordered a CAT scan, but she did not hear about scheduling that at [facility] either. Cologuard negative 10/16/24. I reordered the CAT scan and sent a message for scheduling. I advised her to call me if she does not hear within 2 weeks from [facility], and she was also instructed to call the sales and marketing manager office to discuss getting a colonoscopy and follow up appointment. Last mammogram April 2025. No evidence of breast cancer. Last bone density exam November 2024. She has osteopenia. She does note brittle nails and vertical lines in her nails that have been there for a long time. I discussed that this may be normal part of aging, but we will check labs for deficiency. She received the flu vaccine at the pharmacy. She reports pneumonia vaccine is also up to date. Shingrix vaccine: has not received it. Discussed today. Eye and dental exams are up to date. 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 There is excessive cerumen in the ears today on exam. She will use Debrox drops and return for a nurse visit to flush them. ROS: Constitutional: No unexplained weight loss, fever, chills, fatigue or night sweats. Eyes: No vision changes, blurry vision, double vision, eye pain, eye redness, eye discharge. ENT: No ear pain, sneezing, congestion, runny nose or sore throat. Respiratory: No shortness of breath, cough or sputum production. Cardiovascular: No chest pain, chest pressure or chest discomfort. No palpitations or pedal edema. Gastrointestinal: No anorexia, nausea, vomiting or diarrhea. No abdominal pain or blood in stool. Genitourinary: No dysuria, hematuria, urinary frequency. Neurologic: No headache, dizziness, syncope, unilateral weakness, ataxia, numbness or tingling in the extremities. Musculoskeletal: No muscle pain, back pain, joint pain or swelling. Hematologic/Lymphatics: No bleeding or bruising. No painful lymph nodes. Skin: No rash or itching. Endocrine: No cold or heat intolerance. No polyuria or polydipsia. Psychiatric: No depression. No SI/HI. Physical exam: Constitutional: Alert, in no distress. Head: Normocephalic. Eyes: Pupils are equal, round and reactive to light. Extraocular muscles intact. Ear, Nose and Throat: Excessive wax in the left ear canal and there is mild wax buildup in the right ear canal. TMs normal. Normal nasal mucosa. No nasal discharge. No oral lesions. Neck: Supple, Full range of motion. No lymphadenopathy. No palpable thyroid masses. Respiratory: Clear to auscultation. Cardiovascular: S1 S2 regular. No murmurs. No carotid bruits. Gastrointestinal: Abdomen soft, non-tender, non-distended. Normal bowel sounds. No palpable masses. Neurologic: No focal neurological deficits. Symmetric patellar reflexes. Moves all extremities spontaneously. Sensation intact bilaterally. Skin: No rashes Musculoskeletal: No gross deformities. Normal range of motion. Extremities: Warm and well perfused. No clubbing, cyanosis or edema. Intact peripheral pulses bilaterally. Psychiatric: Normal mood and affect [facility] Medical History (Updated 06/04/25 @ 10:28 by SAM Browning) Routine physical examination Gallbladder polyp High intestinal alkaline phosphatase level Osteopenia Headache Decreased white blood cell count Elevated alkaline phosphatase level Stress Worsening headaches Cochlear implant in place Surgical History (Updated 09/18/24 @ 15:49 by Jeannette Oneal [facility]) H/O hernia repair H/O: hysterectomy Family History Mother Glaucoma Mental health disorder Social History (Updated 06/04/25 @ 10:04 by Yajaira Guajardo CMA) Household Members: Spouse and Children Housing: House Alcohol intake: never Patient Tobacco Use Status: Never used Tobacco e-Cigarette/Vaping Use: Never Used Second Hand Smoke Exposure: No service: No Current occupational status: retired Cognitive needs: No Hearing needs: Yes Vision needs: Yes Questionnaire PHQ-9 Over the last 2 weeks, how often have you been bothered by any of the following problems? 1. Little interest or pleasure in doing things: not at all 2. Feeling down, depressed, or hopeless: not at all 3. Trouble falling or staying asleep, or sleeping too much: not at all 4. Feeling tired or having little energy: not at all 5. Poor appetite or overeating: not at all 6. Feeling bad about yourself - or that you are a failure or have let yourself or your family down: not at all 7. Trouble concentrating on things, such as reading the newspaper or watching television: not at all 8. Moving or speaking so slowly that other people could have noticed. Or the opposite - being so fidgety or restless that you have been moving around a lot more than usual: not at all 9. Thoughts that you would be better off or of hurting yourself in some way: not at all Total score: 0 Depression Screening Interpretation: Negative Depression Screening Done: Yes 23169 - PHQ-9 Billing: Yes Source: Developed by Drs. Lisandro Solorzano, Zuleyka Phelps, Emeterio Montanez and colleagues, with an educational jacoby from [employer]. Thrive Questionnaire Date Thrive assessed: 09/18/24 I am a: Patient What is your living situation today?: I have a steady place to live Within the past 12 months, did the food you bought not last and you didn't have the money to get more?: Never true Within the past 12 months, did you worry whether your food would run out before you got money to buy more?: Never true Do you have trouble paying for medicines?: No Do you have trouble getting transportation to medical appointments?: No Do you have trouble paying your heating and electricity bill?: No Do you have trouble taking care of your child, family member or friend?: No Do you have trouble with day-to-day activities such as bathing, preparing meals, shopping, managing finances, etc.?: No Are you currently unemployed and looking for a job?: No Are you interested in more education?: Yes Currently or been in a relationship where the following occur: I choose not to answer THRIVE Score: 0 JACQUELINE-7 AMB Questionnaire JACQUELINE-7 Date JACQUELINE - 7 assessed: 11/13/24 Feeling nervous, anxious, or on edge: 0 = Not at all Not being able to stop or control worryin = Not at all Worrying too much about different things: 0 = Not at all Trouble relaxin = Not at all Being so restless that it is hard to sit still: 0 = Not at all Becoming easily annoyed or irritable: 0 = Not at all Feeling afraid as if something awful might happen: 0 = Not at all Total JACQUELINE-7 score (0-4 normal; 5-9 mild; 10-14 moderate; 15-21 severe): 0 Source: Developed by Drs. Lisandro Solorzano, Emeterio Farooq and colleagues, with an educational jacoby from [employer]. JACQUELINE-7 Assessment Billing JACQUELINE-7 Assessment Tool: JAQCUELINE-7 Assessment 56655 Physical exam (Primary Care) Vital Signs: Last Vital Signs Temp 97.6 F 06/04/25 10:04 Pulse 65 06/04/25 10:04 Resp 16 06/04/25 10:04 BP 110/72 06/04/25 10:04 Pulse Ox 98 06/04/25 10:04 Oxygen Delivery Method Room Air 06/04/25 10:04 BMI result Body Mass Index 26.6 Tobacco/Smoking Status: Tobacco use Status Tobacco use date assessed 06/04/25 06/04/25 10:08 Patient Tobacco Use Status Never used Tobacco 06/04/25 10:08 e-Cigarette/Vaping Use Never Used 06/04/25 10:08 PHQ-9: PHQ-9 Score PHQ-9: Total score 0 06/04/25 10:08 Depression Screening Interpretation: Negative Thrive Assessment: Date of Thrive Assessment Date Thrive assessed 09/18/24 06/04/25 10:08 Currently or been in a relationship where the following occur: I choose not to answer Coding Level of Care Code Est Pt Prev Care >65y(72641) Diagnoses Routine physical examination Z00.00 Elevated alkaline phosphatase level R74.8 High intestinal alkaline phosphatase level R74.8 Additional Codes JACQUELINE-7 Assessment Billing - JACQUELINE-7 Assessment Tool: JACQUELINE-7 Assessment 37256 ([id number]) PHQ-9 - 09621 - PHQ-9 Billing: Yes ([id number]) Assessment & Plan Assessment & Plan (1) Routine physical examination: Code(s): Z00.00 - Encounter for general adult medical examination without abnormal findings Category: Medical (2) Elevated alkaline phosphatase level: Code(s): R74.8 - Abnormal levels of other serum enzymes Category: Medical (3) High intestinal alkaline phosphatase level: Code(s): R74.8 - Abnormal levels of other serum enzymes Category: Medical Plan Patient is seen today for a routine physical. As part of this visit we reviewed the following issues, which are considered and essential part of preventative health in this age group: - Breast Cancer screening - Annual Travel Specialist exam - Screening for colon cancer - Blood pressure screening - Cholesterol screening - Osteoporosis prevention including calcium/vitamin D intake, weight bearing exercise & smoking cessation - Nutritional and exercise counseling - Counseling of injury prevention including fire prevention, smoke alarms and seat belt usage - Screening for depression - Education about skin cancer - Recommendations about immunizations - Recommendation of an eye exam - Screening for substance abuse Follow up in 6-[address] results. Follow up for nurse visit in 2 weeks for ear flush. Schedule physical exam in 1 year. Orders: Orders Vitamin B12 and Folate Today D72.819 - Decreased white blood cell count, unspecified, L60.3 - Nail dystrophy, M85.80 - Other specified disorders of bone density and structure, unspecified site, R74.8 - Abnormal levels of other serum enzymes, Z00.00 - Encounter for general adult medical examination without abnormal findings Comprehensive Met. Panel Today D72.819 - Decreased white blood cell count, unspecified, L60.3 - Nail dystrophy, M85.80 - Other specified disorders of bone density and structure, unspecified site, R74.8 - Abnormal levels of other serum enzymes, Z00.00 - Encounter for general adult medical examination without abnormal findings IRON PROFILE Today D72.819 - Decreased white blood cell count, unspecified, L60.3 - Nail dystrophy, M85.80 - Other specified disorders of bone density and structure, unspecified site, R74.8 - Abnormal levels of other serum enzymes, Z00.00 - Encounter for general adult medical examination without abnormal findings Lipid Panel Today D72.819 - Decreased white blood cell count, unspecified, L60.3 - Nail dystrophy, M85.80 - Other specified disorders of bone density and structure, unspecified site, R74.8 - Abnormal levels of other serum enzymes, Z00.00 - Encounter for general adult medical examination without abnormal findings Vitamin D 25-OH (D2 and D3) Today D72.819 - Decreased white blood cell count, unspecified, L60.3 - Nail dystrophy, M85.80 - Other specified disorders of bone density and structure, unspecified site, R74.8 - Abnormal levels of other serum enzymes, Z00.00 - Encounter for general adult medical examination without abnormal findings Zinc Today D72.819 - Decreased white blood cell count, unspecified, L60.3 - Nail dystrophy, M85.80 - Other specified disorders of bone density and structure, unspecified site, R74.8 - Abnormal levels of other serum enzymes, Z00.00 - Encounter for general adult medical examination without abnormal findings Complete Blood Count no Diff Today D72.819 - Decreased white blood cell count, unspecified, L60.3 - Nail dystrophy, M85.80 - Other specified disorders of bone density and structure, unspecified site, R74.8 - Abnormal levels of other serum enzymes, Z00.00 - Encounter for general adult medical examination without abnormal findings Medications: New carbamide peroxide 6.5% (Debrox) 5 drps otic (ears) Q12H 15 mL 0RF 4 days
[2025-06-04 10:04] VITALS: BP 110/72; PULSE 65; RESP 16; TEMP 36.4; O2SAT 98; BMI 26.6
== END 2025-06-04 10:35 | disposition home or self-care (01) ==
LOC: HO.HMCFM 09:53
PROVIDERS: PCP Physician Assistant Medical; Visit Provider Physician Assistant Medical
DX: Z00.00 Encounter for general adult medical examination without abnormal findings (principal); R74.8 Abnormal levels of other serum enzymes

== ENCOUNTER → 2025-06-04 09:52 | Outpatient (BNVA) | payer MEDICARE, SELFPAY | PROVIDERS: PCP Physician Assistant Medical; Visit Provider Physician Assistant Medical | DX: Z00.00 Encounter for general adult medical examination without abnormal findings (principal); R74.8 Abnormal levels of other serum enzymes; Z13.30 Encounter for screening examination for mental health and behavioral disorders, unspecified | CPT/HCPCS: 96127; 99397 ==

== ENCOUNTER 2025-06-05 08:21 | Outpatient (REF) | payer MEDICARE, SELFPAY ==
[2025-06-05 09:41] LABS: Hematocrit 35.3 % (37.0-47.0); Hemoglobin 10.9 g/dl (12.0-16.0); Mean Corpuscular HGB Conc 30.9 g/dl (31.0-35.0); Mean Corpuscular Hemoglobin 28.7 pg (27.0-33.0); Mean Corpuscular Volume 92.9 fL (80.0-98.0); NRBC Abs Auto 0.000 X10*3/uL (0.0-0.012); NRBC Pct Auto 0.0 /100WBC (0.0-0.2); Platelet Count 358 X10*3/uL (160-400); Red Blood Count 3.80 X10*6/uL (4.20-5.50); White Blood Count 4.5 X10*3/uL (4.8-10.8)
[2025-06-05 10:07] LABS: Alanine Aminotransferase 22 U/L (0-31); Albumin Level 4.3 g/dL (3.5-5.0); Alkaline Phosphatase 306 U/L (39-117); Anion Gap 8 (12-20); Aspartate Amino Transferase 24 U/L (5-31); Blood Urea Nitrogen 13 mg/dL (9-16); Calcium 9.8 mg/dL (8.4-10.2); Carbon Dioxide 30 mmol/L (22-29); Chloride 108 mmol/L (96-108); Cholesterol 220 mg/dL (<200); Estimated Glomerular Filt Rate > 60; HDL Cholesterol 95 mg/dL (>40); Iron 17 mcg/dL (30-160); Percent Iron Saturation 5 % (15-50); Potassium 4.2 mmol/L (3.3-5.1); Sodium 142 mmol/L (135-145); Total Iron Binding Capacity 345 mcg/dL (228-428); Total Protein 6.6 g/dL (6.5-8.0); Triglycerides 47 mg/dL (<150); Unsaturated Iron Binding 328 ug/dL
[2025-06-05 10:46] LABS: Folate 15.2 ng/mL (> or = 4.0); Vitamin B12 468 pg/mL (200-900)
[2025-06-13 06:09] LABS: Vitamin D 25-OH, D2 <4 ng/mL; Vitamin D 25-OH, D3 47 ng/mL; Vitamin D 25-OH, Total 47 ng/mL (30-100)
== END 2025-06-05 08:22 | disposition home or self-care (01) ==
LOC: HO.LAB 08:21
PROVIDERS: PCP Physician Assistant Medical; Visit Provider Physician Assistant Medical
DX: Z00.00 Encounter for general adult medical examination without abnormal findings (principal); D72.819 Decreased white blood cell count, unspecified; M85.80 Other specified disorders of bone density and structure, unspecified site; L60.3 Nail dystrophy; R74.8 Abnormal levels of other serum enzymes
CPT/HCPCS: 36415; 80053; 80061; 82306; 82607; 82746; 83540; 84630; 85027

== ENCOUNTER 2025-06-22 08:53 | Outpatient (AMB) | payer MEDICARE, SELFPAY ==
--- NOTE | 2025-06-22 09:19 | AM.OFFVISNUR ---
Intake Visit Reasons: nurse visit flush ears Allergies codeine Allergy (Intermediate, Verified 06/04/25 10:03) Unknown Office Procedures Cerumen Removal From which ear canal was the cerumen removed: bilateral Removal: irrigation Notes: patient tolerated procedure well, no complications and ear canal clear [id number] Irrigation/Lavage Assessment & Plan Assessment & Plan Orders: Orders AMB Cerumen Removal Today H61.23 - Impacted cerumen, bilateral Coding CPT Codes Office Procedure - CPT: 11106-Mmx Irrigation/Lavage ([id number])
== END 2025-06-22 10:44 | disposition home or self-care (01) ==
LOC: HO.HMCFM 08:54
PROVIDERS: PCP Physician Assistant Medical; Visit Provider Physician Assistant Medical
DX: H61.23 Impacted cerumen, bilateral (principal)

== ENCOUNTER → 2025-06-22 08:53 | Outpatient (BNVA) | payer MEDICARE, SELFPAY | PROVIDERS: PCP Physician Assistant Medical; Visit Provider Physician Assistant Medical | DX: H61.23 Impacted cerumen, bilateral (principal) | CPT/HCPCS: 69209 ==